=== PATIENT | female | born 1960 | race Caucasian/White ===

== ENCOUNTER 2017-08-24 11:29 | Day surgery (SDC) | payer MEDICAID ==
[~2017-08-24 11:29] MED LIST: ACETAMINOPHEN 1,000 MG/100 ML BTL IV ONE; CEFAZOLIN 1 Gram 1 GM/50 ML BAG IVPB ONE
[2017-08-24] MEDS ORDERED: BUPIVACAINE 0.25% W/EPI MPF 30ML VIAL IVP ONE (11:30)
[2017-08-24] MEDS ORDERED: FENTANYL PF 100MCG/2ML VIAL IV ONE (11:30)
[2017-08-24] MEDS ORDERED: LIDOCAINE 1% MDV (10MG/ML) 20ML VIAL SQ ONE (11:30)
[2017-08-24] MEDS ORDERED: MIDAZOLAM HCL 2MG/2ML VIAL IV ONE (11:30)
[2017-08-24] MEDS ORDERED: PROPOFOL 10 MG/ML VIAL IV ONE (11:30)
--- NOTE | 2017-08-25 08:20 | Operative Note ---
DATE OF SURGERY: 08/24/2017 Surgeon: Rick Oreilly DO PREOPERATIVE DIAGNOSIS: Back mass. POSTOPERATIVE DIAGNOSIS: Back mass measuring 3 x 2 cm down to the fascia. OPERATION: Excision of back mass. PROCEDURE: The patient is a 57-year-old female who was brought to the operating room and placed in the supine position. She was rotated into the left lateral position. Her back was prepped and draped in the usual sterile fashion. The area around the mass was anesthetized with a total of 8 mL of 0.25% Sensorcaine with epinephrine. A 2.5 cm incision was made. This was carried down through the subcutaneous tissues to what appeared to be a lipoma. This was fairly densely adherent to the underlying fascia. This was then passed off the field. This did measure 3 x 2 cm. The wound was then closed with 3-0 and 4-0 Vicryl. Dermabond was placed. She was taken to the recovery room in satisfactory condition. Final pathology pending. CC: unintelligible MTDD
== END 2017-08-24 13:01 | disposition home or self-care (01) ==
LOC: SUR 11:29
PROVIDERS: ATTEND Surgery
DX: D17.1 Benign lipomatous neoplasm of skin and subcutaneous tissue of trunk (principal); I10 Essential (primary) hypertension; E78.00 Pure hypercholesterolemia, unspecified; J44.9 Chronic obstructive pulmonary disease, unspecified
CPT/HCPCS: 11406; 00300; J3010; J0690

== ENCOUNTER 2018-08-21 20:41 | Observation (INO) | payer MEDICAID ==
[2018-08-21] MEDS ORDERED: PROMETHAZINE HCL 12.5 MG in 0.9 % SODIUM CHLORIDE 100ML 100 ML IVPB ONE (21:11)
[2018-08-21] MEDS ORDERED: 0.9 % SODIUM CHLORIDE 1,000 ML BAG IV ONE (21:12)
[2018-08-21 21:23] LABS: ABSOLUTE NEUTROPHIL COUNT 7.48; BASO % 0.4 % (0-6); EOS % 1.9 % (0-6); GRAN % 55.9 % (47-80); HEMATOCRIT 33.7 % (35.0-47.0); HEMOGLOBIN 11.3 gm/dl (11.6-16.0); LYMPH % 32.2 % (16-45); MEAN CELL VOLUME 94.1 fl (81-97); MEAN CORPUSCULAR HGB CONC 33.5 g/dl (32-36); MEAN PLATELET VOLUME 8.5 fl (7.4-10.4); MONO % 9.6 % (0-9); PLATELET COUNT 355 K/uL (130-400); RED BLOOD COUNT 3.58 M/uL (3.80-5.40); RED CELL DISTRIBUTION WIDTH 12.5 % (11.5-14.5); WHITE BLOOD COUNT W/O DIFF 13.4 K/uL (4.2-12.2)
[2018-08-21 21:25] LABS: MEAN CORPUSCULAR HEMOGLOBIN 31.5 pg (27-33)
[2018-08-21 21:29] LABS: BLOOD UREA NITROGEN 34 mg/dL (6-20); CREATININE 1.8 mg/dL (0.5-0.9); EST GLOMERULAR FILTRATION RATE 31 mL/min
[2018-08-21 21:32] LABS: GLUCOSE,RANDOM 115 mg/dL (74-109)
--- NOTE | 2018-08-21 21:33 | Emergency Department Record ---
History of Present Illness - General Chief Complaint: Dizziness Stated Complaint: FAINTED Time Seen by Provider: 08/21/18 21:02 Source: Patient, Family Mode of Arrival: Wheelchair Limitations: No limitations - History of Present Illness Initial Comments: pt has been lightheaded for a month and has 2 syncopal episodes with possible seizure like activity. she admits to cocaine use. her states she appeared to have shaking like movements with her syncope MD Complaint: Dizziness, Lightheadedness, Near syncope Onset/Timin -: Minutes(s) Timing: Sudden onset Description: Difficulty walking, Nausea History of Same: Yes History of Trauma: No Associated Symptoms: Denies other symptoms - [place] Coma Scale Eye Response: (4) Open spontaneously Motor Response: (6) Obeys commands Verbal Response: (5) Oriented [place] Total: 15 - Related Data Home Medications Medication Instructions Recorded Confirmed Last Taken Amlodipine Besylate [Norvasc] 5 mg PO DAILY 08/21/18 08/21/18 08/21/18 Aspirin [Aspir-Low] 1 tab PO DAILY 08/21/18 08/21/18 08/21/18 Lisinopril 1 tab PO DAILY 08/21/18 08/21/18 08/21/18 Pregabalin [Lyrica] 1 tab PO DAILY 08/21/18 08/21/18 08/21/18 Allergies Allergy/AdvReac Type Severity Reaction Status Date / Time ibuprofen Allergy ABDOMINAL Verified 07/31/14 16:52 PAIN naproxen [From Naprosyn] Allergy HYPERSENSIT Verified 07/31/14 16:52 IVITY Travel Screening - Travel/Exposure Within Last 30 Days Have you traveled within the last 30 days?: No - Travel/Exposure Within Last Year Have you traveled outside the [place] in the last year?: No - Additonal Travel Details Have you been exposed to anyone with a communicable illness?: No - Travel Symptoms Symptom Screening: None Review of Systems Reviewed: No additional complaints except as noted below Constitutional: Reports: As per HPI. Denies: Chills, Fever, Malaise, Night sweats, Weakness, Weight change Eyes: Reports: As per HPI. Denies: Eye discharge, Eye pain, Photophobia, Vision change ENT: Reports: As per HPI. Denies: Congestion, Dental pain, Ear pain, Epistaxis, Hearing loss, Throat pain Respiratory: Reports: As per HPI. Denies: Cough, Dyspnea, Hemoptysis, Stridor, Wheezes Cardiovascular: Reports: As per HPI. Denies: Arrhythmia, Chest pain, Dyspnea on exertion, Edema, Murmurs, Orthopnea, Palpitations, Paroxysmal nocturnal dyspnea, Rheumatic Fever, Syncope Endocrine: Reports: As per HPI. Denies: Fatigue, Heat or cold intolerance, Polydipsia, Polyuria Gastrointestinal: Reports: As per HPI. Denies: Abdominal pain, Constipation, Diarrhea, Hematemesis, Hematochezia, Melena, Nausea, Vomiting Genitourinary: Reports: As per HPI. Denies: Abnormal menses, Discharge, Dyspareunia, Dysuria, Frequency, Hematuria, Incontinence, Retention, Urgency Musculoskeletal: Reports: As per HPI. Denies: Arthralgia, Back pain, Gout, Joint swelling, Myalgia, Neck pain Skin: Reports: As per HPI. Denies: Bruising, Change in color, Change in hair/nails, Lesions, Pruritus, Rash Neurological: Reports: As per HPI, Seizure, Vertigo. Denies: Abnormal gait, Confusion, Headache, Numbness, Paresthesias, Tingling, Tremors, Weakness Psychiatric: Reports: As per HPI. Denies: Anxiety, Auditory hallucinations, Depression, Homicidal thoughts, Suicidal thoughts, Visual hallucinations Hematological/Lymphatic: Reports: As per HPI. Denies: Anemia, Blood Clots, Easy bleeding, Easy bruising, Swollen glands Past Medical History - SOCIAL HISTORY Smoking Status: Current every day smoker Alcohol Use: Heavy Drug Use: Heavy Drug Use Detail:: Cocaine, Marijuana - RESPIRATORY Hx Respiratory Disorders: Yes Hx Bronchitis: Yes Hx COPD: Yes Hx Dyspnea: Yes (exertion in the heat) Comment:: smoker - CARDIOVASCULAR Hx Cardio Disorders: Yes Hx Deep Vein Thrombosis: No Hx Edema: Yes (only with standing long periods, or to much salt ingestion) Hx Hypertension: Yes (on meds good control) Hx Palpitations: Yes (occass fluttering has had negative work ups) Comment:: varicose veins with superficial clots - NEURO Hx Neuro Disorders: Yes Hx of Migraines: Yes (occass.) Hx Neuropathy: Yes (hands) - GI Hx GI Disorders: Yes Hx Reflux: Yes (is resolved) Hx Wt Loss/Wt Gain: Yes (last 25 lbs in 1 year due to stress) - Hx Genitourinary Disorders: No Hx Bladder Problem: No Comment:: s/p hyst - ENDOCRINE Hx Endocrine Disorders: Yes Hx Diabetes: No Hx Thyroid Disease: No Comment:: . - MUSCULOSKELETAL Hx Musculoskeletal Disorders: Yes Hx Arthritis: Yes Hx Fibromyalgia: Yes Comment:: left knee pain - PSYCH Hx Psych Problems: Yes Hx Anxiety: Yes (sometimes) Hx Depression: Yes (after childbirth) - HEMATOLOGY/ONCOLOGY Hx Hematology/Oncology Disorders: No Family Medical History Any Significant Family History?: Yes Hx Cancer: Father, Mother, Grandparents *Cancer Comment: aunt Hx Diabetes: Mother Hx Heart Disease: Mother Hx HTN: Father, Mother Hx Stroke: Grandparents Physical Exam - General General Appearance: Alert, Oriented x3, Cooperative, Mild distress - Head Head exam: Normal inspection - Eye Eye exam: Normal appearance, PERRL, EOMI Pupils: Normal accommodation - ENT ENT exam: Normal exam, Mucous membranes moist, Normal external ear exam, Normal orophraynx Ear exam: Normal external inspection. negative: External canal tenderness Nasal Exam: Normal inspection. negative: Discharge, Sinus tenderness Mouth exam: Normal external inspection, Tongue normal Teeth exam: Normal inspection. negative: Dental caries Throat exam: Normal inspection. negative: Tonsillar erythema, Tonsillar exudate - Neck Neck exam: Normal inspection, Full ROM. negative: Tenderness - Respiratory Respiratory exam: Normal lung sounds bilaterally. negative: Respiratory distress - Cardiovascular Cardiovascular Exam: Regular rate, Normal rhythm, Normal heart sounds - GI/Abdominal GI/Abdominal exam: Soft, Normal bowel sounds. negative: Tenderness - Rectal Rectal exam: Deferred - exam: Deferred - Extremities Extremities exam: Normal inspection, Full ROM, Normal capillary refill. negative: Tenderness - Back Back exam: Reports: Normal inspection, Full ROM. Denies: Muscle spasm, Rash noted, Tenderness - Neurological Neurological exam: Alert, CN II-XII intact, Normal gait, Oriented X3 - Psychiatric Psychiatric exam: Normal affect, Normal mood - Skin Skin exam: Dry, Intact, Normal color, Warm Course Vital Signs 08/21/18 20:45 Temperature 97.8 F Pulse Rate [ 78 Pulse Ox Probe] Respiratory 20 Rate Blood Pressure 94/59 [Left Arm] Pulse Ox 96 Medical Decision Making - Lab Data Result diagrams: 08/21/18 20:53 08/21/18 20:53 Lab Results 08/21/18 08/21/18 08/21/18 Range/Units 20:53 20:53 21:11 WBC 13.4 H (4.2-12.2) K/uL RBC 3.58 L (3.80-5.40) M/uL Hgb 11.3 L (11.6-16.0) gm/dl Hct 33.7 L (35.0-47.0) % MCV 94.1 (81-97) fl MCH 31.5 (27-33) pg MCHC 33.5 (32-36) g/dl RDW 12.5 (11.5-14.5) % Plt Count 355 (130-400) K/uL MPV 8.5 (7.4-10.4) fl Gran % 55.9 (47-80) % Lymphocytes % 32.2 (16-45) % Monocytes % 9.6 H (0-9) % Eosinophils % 1.9 (0-6) % Basophils % 0.4 (0-6) % Absolute Neutrophils 7.48 Lactic Acid Cancelled Troponin T Cancelled NT-Pro-B Natriuret Pep 08/21/18 Range/Units 21:12 WBC (4.2-12.2) K/uL RBC (3.80-5.40) M/uL Hgb (11.6-16.0) gm/dl Hct (35.0-47.0) % MCV (81-97) fl MCH (27-33) pg MCHC (32-36) g/dl RDW (11.5-14.5) % Plt Count (130-400) K/uL MPV (7.4-10.4) fl Gran % (47-80) % Lymphocytes % (16-45) % Monocytes % (0-9) % Eosinophils % (0-6) % Basophils % (0-6) % Absolute Neutrophils Lactic Acid Troponin T NT-Pro-B Natriuret Pep Cancelled Disposition Disposition: Admit Clinical Impression: Hyponatremia, Renal insufficiency Hypotension Qualifiers: Hypotension type: unspecified hypotension type Qualified Code(s): I95.9 - Hypotension, unspecified Syncope Qualifiers: Syncope type: unspecified Qualified Code(s): R55 - Syncope and collapse Disposition: Still a Patient at [facility] Decision to Admit: Admit from ER Decision to Admit Date: 08/21/18 Decision to Admit Time: 23:50 Condition: (2) Stable Forms: Patient Portal Access Quality - Quality Measures Quality Measures: N/A - Blood Pressure Screening Does Patient Have Any of the Following: No Blood Pressure Classification: Normal BP Reading Systolic Measurement: 94 Diastolic Measurement: 60 Screening for High Blood Pressure: < Normal BP, F/U Not Required > [G8783]
[2018-08-21 21:37] LABS: CKMB 8.7 ng/mL (<3.77)
[2018-08-21 21:53] LABS: CREATINE PHOSPHOKINASE 366 U/L (26-192)
[2018-08-21 22:00] LABS: URINE APPEARANCE CLEAR; URINE BILIRUBIN NEGATIVE (NEGATIVE); URINE BLOOD NEGATIVE (NEGATIVE); URINE COLOR YELLOW; URINE GLUCOSE (UA) NEGATIVE (NEGATIVE); URINE KETONE TRACE (NEGATIVE); URINE LEUKOCYTE ESTERASE NEGATIVE (NEGATIVE); URINE NITRITE NEGATIVE (NEGATIVE); URINE PROTEIN NEGATIVE (NEGATIVE); URINE UROBILINOGEN 0.2 E.U./dL (0.20 - 1.00)
[2018-08-22] MEDS ORDERED: HYDROCODONE/APAP 7.5/325MG TABLET PO PRN (00:20)
[2018-08-22] MEDS ORDERED: ACETAMINOPHEN 500 MG TABLET PO PRN (00:20)
[2018-08-22 06:26] LABS: BLOOD UREA NITROGEN 23 mg/dL (6-20); CREATININE 0.8 mg/dL (0.5-0.9); EST GLOMERULAR FILTRATION RATE > 60 mL/min; GLUCOSE,RANDOM 89 mg/dL (74-109)
--- NOTE | 2018-08-22 09:57 | Discharge Note ---
VTE H&P Assessment - Risk for VTE Risk for VTE: Yes Risk Level: Moderate Risk Assessment Date: 08/22/18 Risk Assessment Time: 09:55 VTE Orders Placed or Will Be Placed: Yes Discharge Medications - Discharge Medications Home Medications: Ambulatory Orders Hydrocodone/Acetaminophen [Drury 7.5mg/325mg] 1 tab PO Q8H PRN 07/31/14 [Last Taken 08/21/18] Amlodipine Besylate [Norvasc] 5 mg PO DAILY 08/21/18 [Last Taken 08/21/18] Aspirin [Aspir-Low] 1 tab PO DAILY 08/21/18 [Last Taken 08/21/18] Pregabalin [Lyrica] 1 tab PO DAILY 08/21/18 [Last Taken 08/21/18] Discharge Note - Date Date of Discharge Note: 08/22/18 Disposition: Home, Self-Care Condition: (2) Stable Additional Instructions: follow up with Yue in one week stop lisinopril and stop clonidine continue amlodipine check BP three times aweek and write down the numbers at [facility] they have a BP machine Stop norco and use tylenol for pain no more than 6 pills in 24 hours stop alcohol stop cocaine Forms: Patient Portal Access Activity at Discharge: Increase Activity as Tolerated Diet at Discharge: Regular Diet
[2018-08-22] MEDS ORDERED: ENOXAPARIN 40 MG/0.4 ML SYR SQ SCH (10:00)
[2018-08-22] MEDS ORDERED: PREGABALIN 50 MG CAPSULE PO SCH (10:00)
[2018-08-22] MEDS ORDERED: ASPIRIN 81 MG TABEC PO SCH (10:00)
[2018-08-22 20:04] LABS: OSMOLALITY,SERUM 299 mOsm/kg (280-295)
[2018-08-22 20:20] LABS: OSMOLALITY,URINE 376 mOsm/kg (250-1200)
--- NOTE | 2018-08-23 09:01 | History and Physical Report ---
DATE OF ADMISSION: 08/22/2018 CHIEF COMPLAINT/HISTORY OF CHIEF COMPLAINT: Dizzy, lightheaded, hypotension, vomiting x2, no diarrhea. HISTORY OF PRESENT ILLNESS: This 58-year-old female presents to the emergency department with dizzy, lightheaded, low blood pressure, and was evaluated in the ER by Dr. Birmingham with a diagnosis of hyponatremia, cocaine abuse, hypotension, renal insufficiency, marijuana use. The patient was given 1 liter of fluids and put on a water restricted diet, admitted to the hospital for further observation and care. Head CT which was negative for acute changes. MEDICAL HISTORY: COPD, chronic back pain, using [place] p.r.n., but her doctor retired, Dr. Sánchez, retired about April of 2018. GERD, tobacco use, marijuana use. The patient states it is the 1st time using cocaine because of the holiday weekend. She said she did not use much. She gets her [place] through her boyfriend or , I am not sure which, which is giving her [place] periodically to help her back pain and to sleep. She said she uses it for sleep. She has heavy alcohol use which also could be contributing to her hyponatremia. She had cocaine 24 hours ago. She has occasional migraines. She has some numbness in her hands, hypertension. SURGICAL HISTORY: Hysterectomy 1997, carpal tunnel surgery, left knee scopes, and colonoscopy. CURRENT MEDICATIONS: 1. Aspirin 1 a day. 2. Lyrica 1 a day. 3. Lisinopril 1 a day. 4. Clonidine HCD 0.1 b.i.d. 5. Amlodipine 5 mg a day. 6. [place] 1 every 8 hours p.r.n. She uses it for sleep and back pain. She said she has but one more month's worth of medication. ALLERGIES: IBUPROFEN AND NAPROSYN. SOCIAL HISTORY: She smokes 1 pack a day. FAMILY PSYCHOSOCIAL HISTORY: Her mother, father, and grandparents have cancer. Diabetes and heart disease for the mother, hypertension for the father and mother, stroke for the grandparents. Heavy alcohol use and occasional cocaine and marijuana use. SYSTEMS REVIEW: HEENT: No upper respiratory infectious symptoms, cough, cold, or congestion. She does have allergies and uses decongestants. CARDIOVASCULAR: No chest pain, palpitations, or arrhythmias. RESPIRATORY: No cough, cold, or congestion. She does have COPD and smokes a pack a day. GASTROINTESTINAL: No nausea, vomiting, diarrhea., black stools or bloody stools. GENITOURINARY: No dysuria, hematuria, or frequency or burning on urination. MUSCULOSKELETAL: She has low back pain, occasionally uses [place], which is chronic. NEUROLOGIC: No CVA paralysis or paresthesias. ENDOCRINE: No diabetes or thyroid disease. INTEGUMENT: No rash, ulcers, change in moles, or yellow skin. PHYSICAL EXAMINATION: GENERAL: Height is 5 feet 8 inches, weight is 130 pounds. VITAL SIGNS: Temperature is 97.9, pulse is 71, blood pressure 114/70, respiratory rate 16, pulse ox is 99% on room air. She feels much better. HEENT: Pupils are equal, round, and reactive to light and accomodation. Extraocular muscles are intact. Throat is clear, nose is clear. Tympanic membranes are mason. NECK: Supple. No jugular venous distention, no hepatojugular reflux, no carotid bruits, thyroid is smooth. CARDIOVASCULAR: Regular rate and rhythm without murmurs, clicks, rubs, or gallops. RESPIRATORY: Clear to auscultation and percussion. ABDOMEN: Soft, nontender, no hepatosplenomegaly, no masses, no tenderness. Bowel sounds are active. No bruits. EXTREMITIES: No pitting edema, no cyanosis, no clubbing. Full range of motion. Peripheral pulses are good. BREASTS: Deferred. GYNECOLOGIC: Deferred. RECTAL: Deferred. NEUROLOGIC: Cranial nerves II through XII intact. No gross defects in sensation. Normal strength, normal deep tendon reflexes equal bilaterally. Babinski's negative. MENTAL STATUS: Alert and oriented x3. IMPRESSION: 1. Hypotension, resolved. 2. Hyponatremia, resolved. 3. Tobacco use. 4. Hypertension, improving blood pressures, which may need to go back on her blood pressure medication when she leaves. 5. Cocaine and marijuana use. 6. Alcohol use and abuse. 7. Status post gastroesophageal reflux disease. 8. Status post neuropathy of her hands. PLAN: Chest x-ray to make sure she does not have any tumors in her lungs causing SIADH syndrome. I am discharging her. She is doing much better. [facility]
--- NOTE | 2018-08-23 09:01 | Discharge Summary ---
DATE OF SERVICE: 08/22/2018 at 11:54 a.m. DISCHARGE DIAGNOSES: 1. Hypotension, resolving, dehydration. 2. Hyponatremia, resolving. Her sodium is 134 on discharge. 3. Chronic obstructive pulmonary disease. 4. Tobacco use. 5. Alcohol use and abuse. 6. Cocaine and marijuana use and abuse. 7. History of hypertension. However, she was hypotensive when she came in, so at this point we are only adding back 1 of her blood pressure medications. ATTENDING PHYSICIAN: Sergei Huggins D.O. REASON FOR HOSPITALIZATION: Dizziness, fell, vomiting x2, no diarrhea, weak. Patient was seen in the emergency department by Dr. Birmingham, admitted to the hospital for hypotension, hyponatremia, dizziness, and weakness. She also has COPD, tobacco use, alcohol use, and cocaine and marijuana use. She said she used cocaine 24 hours earlier. Because it was a holiday, she decided to try to use it. Does not usually use cocaine. She also states that she uses her boyfriend's [employer] for her chronic back pain. Her previous doctor was Dr. Sánchez, who retired in April of 2018, and she has not had time to set up a new family doctor yet. Significant findings from examination: Head CT showing no acute changes. Chest x-ray showing COPD with hyperinflation. Laboratory: WBC 13,400, hemoglobin 11.3. Her initial sodium was 14 in the emergency department. It went up to 134 this morning. Potassium is 4.3. BUN is 23, creatinine is 0.8. Her creatine kinase was elevated at 366. Her index was low at 2.6. Troponin-I was negative. Urine was negative. Urine osmolality is still pending. However, her sodium has normalized with normal saline. D-dimer was normal at 0.3. EKG showing normal sinus rhythm with no acute changes. No chest pain. Therapy Provided: IV normal saline in the emergency department, bolus of 1000 mL, and she had a fluid restriction of 1600 mL. CURRENT MEDICATIONS: Continue her home medications of: 1. Amlodipine once a day. 2. Aspirin. 3. Lyrica. 4. Stop the clonidine. 5. Stop the lisinopril. 6. Use Tylenol for pain. 7. Stop the [place]. HOSPITAL COURSE: Much improved. CONDITION AT DISCHARGE: Much improved. DISCHARGE INSTRUCTIONS: 1. Follow up with Dr. Huggins in 1 week for evaluation of her hyponatremia and hypertension and setting up medications. 2. Check her blood pressure at [employer] 3 times a week, write it down, bring the numbers in. If it starts to go up, then she can add the medications back. RACHID
--- NOTE | 2018-08-23 10:36 | CT SCAN REPORT ---
EXAM: CT SCAN OF THE BRAIN WITHOUT CONTRAST HISTORY: DIZZINESS AND VERTIGO. SYNCOPE. TINGLING WITHIN THE LIPS. TECHNIQUE: Standard CT imaging of the brain was performed in the axial plane without contrast. Comparison: 07/31/14. FINDINGS: The brain volume is normal. There is mild asymmetry in size of the lateral ventricles which is unchanged from the previous examination and likely developmental. The brain parenchyma is unremarkable. There is no mass, mass effect, intracranial hemorrhage, visible acute infarct, or abnormal extraaxial fluid. The skull is intact. The orbits, sinuses, and mastoids are normal. IMPRESSION: NO ACUTE INTRACRANIAL ABNORMALITY. JOB NUMBER: [id number] MTDD
--- NOTE | 2018-08-23 10:40 | RADIOLOGY REPORT ---
EXAM: CHEST, TWO VIEWS HISTORY: COPD. VERTIGO. TECHNIQUE: Upright PA and lateral views of the chest were obtained. Comparison: None. FINDINGS: The cardiomediastinal silhouette is normal in size and configuration. The pulmonary vasculature is nondilated. The aortic knob is atherosclerotic. The lungs and pleural spaces are grossly clear. The lungs are hyperinflated. Mild degenerative changes scattered throughout the visualized spine. There is an oval calcific density projecting near the level of the inferior margin of the right breast. This measures 2.6 x 1.5 cm. This may represent a structure outside the patient's body. IMPRESSION: NO RADIOGRAPHIC EVIDENCE OF ACUTE CARDIOPULMONARY DISEASE. HYPERINFLATION OF THE LUNGS CONSISTENT WITH COPD. JOB NUMBER: [id number] MTDD
== END 2018-08-22 12:45 | disposition home or self-care (01) ==
LOC: ER 20:41 → INTOOBSV 08-22 00:10 → MEDSURG 08-22 00:10
PROVIDERS: ADMIT Emergency Medicine; ATTEND Emergency Medicine
DX: R55 Syncope and collapse (principal); E87.1 Hypo-osmolality and hyponatremia; I95.0 Idiopathic hypotension; N28.9 Disorder of kidney and ureter, unspecified; J44.9 Chronic obstructive pulmonary disease, unspecified; I10 Essential (primary) hypertension; G62.9 Polyneuropathy, unspecified; M79.7 Fibromyalgia; M51.16 Intervertebral disc disorders with radiculopathy, lumbar region; F17.210 Nicotine dependence, cigarettes, uncomplicated
CPT/HCPCS: 82550; 83605; 85025; 82553; 80048 ×2; 81003; 84443; 83935; 84484; 85379; 83930; 83880; 71046; 70450; 93005; 93010; G0378; 96361; 96365; 99236; 99285; J2550; J7030